=== PATIENT | female | born 1955 | race Caucasian/White ===

== ENCOUNTER 2021-07-10 09:22 | Emergency (ER) | payer SELFPAY ==
[~2021-07-10] VITALS: Ht 170.2 cm; Wt 61.4 kg
[2021-07-10 09:31] VITALS: BP 135/109
[2021-07-10 10:13] LABS: BASOPHILS # (AUTO) 0.1 X10'3 (0-0.2); EOSINOPHILS # (AUTO) 0.1 X10'3 (0-0.9); MEAN PLATELET VOLUME 7.7 FL (7.4-10.4)
[2021-07-10 10:14] LABS: EOSINOPHILS % (AUTO) 0.9 % (0-6); HEMATOCRIT 39.5 % (35.0-45.0); HEMOGLOBIN 12.9 g/dl (12.0-16.0); LYMPHOCYTES # (AUTO) 2.3 X10'3 (1.1-4.8); LYMPHOCYTES % (AUTO) 22.3 % (21-51); MEAN CORPUSCULAR HGB CONC 32.8 g/dL (33.0-36.5); MEAN CORPUSCULAR VOLUME 85.5 FL (78-98); MONOCYTES # (AUTO) 0.9 X10'3 (0-0.9); MONOCYTES % (AUTO) 8.5 % (2-12); NEUTROPHILS # (AUTO) 6.8 X10'3 (1.8-7.7); NEUTROPHILS % (AUTO) 67.3 % (42-75); PLATELET COUNT 708 X10'3 (140-440); RED BLOOD COUNT 4.62 X10'6 (4.20-5.60); RED CELL DISTRIBUTION WIDTH 14.5 % (11.5-14.5); WHITE BLOOD COUNT 10.1 X10'3 (4.5-11.0)
[2021-07-10 10:29] LABS: ALANINE AMINOTRANSFERASE 25 U/L (12-78); ALBUMIN 3.7 G/DL (3.4-5.0); ALKALINE PHOSPHATASE 97 IU/L (46-116); ANION GAP 12 (8-16); ASPARTATE AMINO TRANSFERASE 17 U/L (10-37); BILIRUBIN,TOTAL 0.4 MG/DL (0.1-1.0); BLOOD UREA NITROGEN 13 MG/DL (7-18); BUN/CREATININE RATIO 11.2 (6.6-38.0); CALCIUM 9.5 MG/DL (8.5-10.1); CHLORIDE 104 MMOL/L (99-107); CREATININE 1.16 MG/DL (0.40-0.90); GLUCOSE 125 MG/DL (70-104); LIPASE 125 U/L (73-393); POTASSIUM 4.2 MMOL/L (3.5-5.1); SODIUM 139 MMOL/L (135-145); TOTAL CARBON DIOXIDE 22.7 MMOL/L (24-32); TOTAL PROTEIN 7.5 G/DL (6.4-8.2); eGFR 47 ML/MIN
[2021-07-11] MEDS ORDERED: FAMO40TA73 PO (13:03)
== END 2021-07-10 20:18 | disposition left against medical advice (07) ==
LOC: ER 09:23
DX: K59.00 Constipation, unspecified (principal); R07.81 Pleurodynia; M54.9 Dorsalgia, unspecified
CPT/HCPCS: 36415; 74018; 74176; 80053; 83690; 85025; 99281; 99285

== ENCOUNTER 2021-07-11 10:12 | Emergency (ER) | payer BC ==
[~2021-07-11] VITALS: Ht 170.2 cm; Wt 61.4 kg
[2021-07-11] MEDS ORDERED: diatr meglu/diatrizoate 30ml oral sol.-(3 dose) bottle PO ONE (11:10)
[2021-07-11] MEDS ORDERED: iohexol 350MG/ML 100ml bottle IV ONE ×2 (11:18→11:41)
[2021-07-11 11:29] LABS: BASOPHILS # (AUTO) 0.1 X10'3 (0-0.2); EOSINOPHILS # (AUTO) 0.1 X10'3 (0-0.9); EOSINOPHILS % (AUTO) 0.6 % (0-6); HEMATOCRIT 32.3 % (35.0-45.0); HEMOGLOBIN 11.3 g/dl (12.0-16.0); LYMPHOCYTES # (AUTO) 1.7 X10'3 (1.1-4.8); LYMPHOCYTES % (AUTO) 17.5 % (21-51); MEAN CORPUSCULAR HEMOGLOBIN 29.4 PG (27.0-31.0); MEAN CORPUSCULAR HGB CONC 35.1 g/dL (33.0-36.5); MEAN CORPUSCULAR VOLUME 83.9 FL (78-98); MEAN PLATELET VOLUME 7.5 FL (7.4-10.4); MONOCYTES # (AUTO) 0.8 X10'3 (0-0.9); MONOCYTES % (AUTO) 8.3 % (2-12); NEUTROPHILS # (AUTO) 7.1 X10'3 (1.8-7.7); NEUTROPHILS % (AUTO) 72.6 % (42-75); PLATELET COUNT 554 X10'3 (140-440); RED BLOOD COUNT 3.85 X10'6 (4.20-5.60); RED CELL DISTRIBUTION WIDTH 14.3 % (11.5-14.5); WHITE BLOOD COUNT 9.7 X10'3 (4.5-11.0)
[2021-07-11 11:35] LABS: ALBUMIN 3.3 G/DL (3.4-5.0); ANION GAP 11 (8-16); BLOOD UREA NITROGEN 13 MG/DL (7-18); BUN/CREATININE RATIO 12.1 (6.6-38.0); CALCIUM 9.1 MG/DL (8.5-10.1); CHLORIDE 106 MMOL/L (99-107); CREATININE 1.07 MG/DL (0.40-0.90); GLUCOSE 100 MG/DL (70-104); POTASSIUM 4.1 MMOL/L (3.5-5.1); SODIUM 142 MMOL/L (135-145); eGFR 52 ML/MIN
[2021-07-11] MEDS ORDERED: FAMO40TA73 PO (13:03)
[2021-07-11] MEDS ORDERED: LIDOcaine Viscous 15ml cup MM ONE (13:05)
[2021-07-11] MEDS ORDERED: mag hydrox/Alum hydrox/simeth 30ml oral suspension PO ONE (13:05)
[2021-07-11 13:20] VITALS: BP 145/106
--- NOTE | 2021-07-11 13:57 | NUR ---
PT CONTINUES TO HAVE PAIN. TROPONIN LAB ADDED ON. DON'T DC PT UNTIL RESULTED PER DR. JAEGER
== END 2021-07-11 14:41 | disposition home or self-care (01) ==
LOC: ER 10:12
DX: R10.13 Epigastric pain (principal); Z79.899 Other long term (current) drug therapy
CPT/HCPCS: 36415; 71275; 74174; 80048; 84484; 85025; 93005; 99285; Q9963; Q9967

== ENCOUNTER 2023-08-15 08:22 | Emergency (ER) | payer BC, OTHER ==
[~2023-08-15] VITALS: Ht 167.6 cm; Wt 61.4 kg
[~2023-08-15 08:22] MED LIST: FAMO40TA73 PO
[2023-08-15 08:45] VITALS: TEMP 98.3
[2023-08-15] MEDS ORDERED: HYDROmorphone 1 mg/ml syringe IM ONE (09:15)
[2023-08-15] MEDS ORDERED: HYDROmorphone 1 mg/ml syringe IV ONE (10:05)
[2023-08-15] MEDS ORDERED: ondansetron/PF 4mg/2ml inj IV ONE (10:05)
[2023-08-15] MEDS ORDERED: HYDR-3965 PO (10:52)
[2023-08-15 11:10] VITALS: BP 180/86; PULSE 84; RESP 15; O2SAT 97
== END 2023-08-15 13:03 | disposition home or self-care (01) ==
LOC: ER 08:22
DX: S52.592A Other fractures of lower end of left radius, initial encounter for closed fracture (principal); S52.591A Other fractures of lower end of right radius, initial encounter for closed fracture; M79.672 Pain in left foot; Z79.899 Other long term (current) drug therapy; W01.0XXA Fall on same level from slipping, tripping and stumbling without subsequent striking against object, initial encounter; Y93.89 Activity, other specified; Y92.89 Other specified places as the place of occurrence of the external cause; Y99.8 Other external cause status
CPT/HCPCS: 29125; 73090; 73110; 73610; 96374; 96375; 99284; J1170; J2405; A4565; A6449

== ENCOUNTER 2024-04-29 13:54 | Outpatient (CLI) | payer BC, OTHER | END 2024-04-29 23:59 | disposition home or self-care (01) | LOC: RAD 13:54 | PROVIDERS: ATTEND Internal Medicine Gastroenterology | DX: Z98.84 Bariatric surgery status (principal) | CPT/HCPCS: 74230 ==